=== PATIENT | male | born 1980 | race Two or more races ===

== ENCOUNTER 2023-04-13 07:36 | Emergency (ER) | payer OTHER ==
[~2023-04-13] VITALS: Ht 152.4 cm; Wt 77.1 kg
== END 2023-04-13 09:24 | disposition home or self-care (01) ==
LOC: ER 07:36
DX: S01.81XA Laceration without foreign body of other part of head, initial encounter (principal); X58.XXXA Exposure to other specified factors, initial encounter; Y93.9 Activity, unspecified; Y92.9 Unspecified place or not applicable; Y99.9 Unspecified external cause status